=== PATIENT | female | born 1955 | race African-American/Black ===

== ENCOUNTER 2021-09-23 08:05 | Outpatient (CLI) | payer MEDICARE | END 2021-09-23 08:06 | disposition home or self-care (01) | LOC: BICMAMMO 08:05 | PROVIDERS: ATTEND Physician Assistant | DX: Z12.31 Encounter for screening mammogram for malignant neoplasm of breast (principal) | CPT/HCPCS: 77063; 77067 ==

== ENCOUNTER 2022-01-19 11:03 | Emergency (ER) | payer MEDICARE ==
[2022-01-19] MEDS ORDERED: Cyclobenzaprine 10 MG TAB ONE (13:18)
[2022-01-19] MEDS ORDERED: HYDROcodone/Acetaminophen 5/325 mg Tablet ONE (13:18)
== END 2022-01-19 14:14 | disposition home or self-care (01) ==
LOC: ERS 11:03
DX: M47.812 Spondylosis without myelopathy or radiculopathy, cervical region (principal); I10 Essential (primary) hypertension; E78.5 Hyperlipidemia, unspecified
CPT/HCPCS: 72125; 93005

== ENCOUNTER 2022-10-08 09:45 | Outpatient (CLI) | payer MEDICARE | END 2022-10-08 09:46 | disposition home or self-care (01) | LOC: BICMAMMO 09:45 | PROVIDERS: ATTEND Nurse Practitioner Family | DX: Z12.31 Encounter for screening mammogram for malignant neoplasm of breast (principal) | CPT/HCPCS: 77063; 77067 ==

== ENCOUNTER 2024-03-06 10:24 | Outpatient (CLI) | payer MEDICARE | END 2024-03-06 10:25 | disposition home or self-care (01) | LOC: ULT 10:24 | PROVIDERS: ATTEND Internal Medicine | DX: D72.820 Lymphocytosis (symptomatic) (principal); E83.10 Disorder of iron metabolism, unspecified | CPT/HCPCS: 76705 ==

== ENCOUNTER 2024-10-20 15:05 | Outpatient (CLI) | payer MEDICARE | END 2024-10-20 15:06 | disposition home or self-care (01) | LOC: BICMAMMO 15:05 | PROVIDERS: ATTEND Nurse Practitioner Family | DX: Z12.31 Encounter for screening mammogram for malignant neoplasm of breast (principal) | CPT/HCPCS: 77063; 77067 ==